=== PATIENT | male | born 1990 | race Caucasian/White ===

== ENCOUNTER 2020-10-21 11:05 | Emergency (ER) | payer SELFPAY ==
[~2020-10-21] VITALS: Ht 180.3 cm; Wt 93.0 kg
[2020-10-21 11:10] VITALS: BP 137/75
--- NOTE | 2020-10-21 11:43 | NUR ---
DR. DUNBAR BEDSIDE EVALUATING PT
--- NOTE | 2020-10-21 11:46 | NUR ---
30 Y MALE C/O RUQ ABD PAIN X TODAY. PT STATES NON-RADIATING PAIN THAT STARTED THIS AM IN RUQ. PT DENIES ANY N/V/D. LAST BM WAS TODAY AND WAS NORMAL. UPON ASSESSMENT BOWEL SOUNDS ACTIVE IN ALL 4 QUADRANTS, AND PT HAS SOME TENDERNESS UPON PALPATION IN RUQ. DENIES DYSURIA. DENIES SOB/CHEST PAIN PMH: DENIES NKA
[2020-10-21] MEDS ORDERED: KETOROLAC 30 MG/ML VIAL IM ONE (11:50)
--- NOTE | 2020-10-21 11:51 | NUR ---
INSTRUMENT LENS INSPECTOR TOOK UA FROM PT BEDSIDE
[2020-10-21 12:07] LABS: BASOPHILS # (AUTO) 0.1 K/uL (0.00-0.22); BASOPHILS % (AUTO) 0.4 % (0.0-2.0); EOSINOPHILS # (AUTO) 0.1 K/uL (0-0.4); EOSINOPHILS % (AUTO) 0.9 % (0.0-4.0); HEMATOCRIT 39.7 % (36-52); HEMOGLOBIN 13.5 g/dL (12.0-18.0); LYMPHOCYTES # (AUTO) 1.9 K/uL (2.0-11.5); LYMPHOCYTES % (AUTO) 13.9 % (20.5-51.1); MEAN CORPUSCULAR HEMOGLOBIN 29 pg (27-31); MEAN CORPUSCULAR HGB CONC 34 g/dL (33-37); MEAN CORPUSCULAR VOLUME 84.3 fL (80-94); MONOCYTES # (AUTO) 0.7 K/uL (0.8-1.0); MONOCYTES % (AUTO) 5.3 % (1.7-9.3); NEUTROPHILS # (AUTO) 11.1 K/uL (1.8-7.7); NEUTROPHILS % (AUTO) 79.5 % (42.2-75.2); PLATELET COUNT (AUTO) 209 K/uL (140-450); RED BLOOD CELL COUNT(AUTO) 4.71 MIL/uL (4.20-6.10); RED CELL DISTRIBUTION WIDTH 13.2 % (11.6-13.7); WHITE BLOOD COUNT (AUTO) 13.9 K/uL (4.8-10.8)
[2020-10-21 12:10] LABS: APPEARANCE,URINE CLEAR (CLEAR); BILIRUBIN,URINE NEGATIVE (NEGATIVE); BLOOD, URINE 3+ (NEGATIVE); COLOR,URINE YELLOW (YELLOW); LEUKOCYTE ESTERASE ,URINE NEGATIVE (NEGATIVE); NITRITE, URINE NEGATIVE (NEGATIVE); UGLUCOSE NEGATIVE (NEGATIVE)
--- NOTE | 2020-10-21 12:14 | NUR ---
PT RETURNED TO BED [address] VIA AMBULATING
[2020-10-21 12:16] LABS: RBC,URINE 11-20 (MOD) /HPF (0-5); WBC,URINE 0-5 /HPF (0-5)
[2020-10-21 12:21] LABS: ALBUMIN 3.5 g/dL (3.4-5.0); ANION GAP 8.1 (8-16); CARBON DIOXIDE 28.8 mmol/L (21-32); CREATININE 1.1 mg/dL (0.6-1.3); POTASSIUM 3.9 mmol/L (3.5-5.1); TOTAL BILIRUBIN 0.2 mg/dL (0.0-1.0)
[2020-10-21] MEDS ORDERED: NAPR-54 PO (12:44)
[2020-10-21] MEDS ORDERED: ACET-8386 PO (12:44)
[2020-10-21] MEDS ORDERED: TAMS0.4C96 PO (12:44)
[2020-10-21] MEDS ORDERED: HYDROcodone/APAP 5/325 MG 1 TAB TAB PO ONE (12:45)
[2020-10-21 13:05] VITALS: BP 117/79
--- NOTE | 2020-10-21 13:05 | NUR ---
Patient discharged with v/s stable. Written and verbal after care instructions ABOUT KIDNEY STONES given and explained. Patient alert, oriented and verbalized understanding of instructions. Ambulatory with steady gait. All questions addressed prior to discharge. ID band removed. Patient advised to follow up with PMD. Rx of NAPROXEN, HYDROCODONE/ACETAMINOPHEN, TAMSULOSIN given. Patient educated on indication of medication including possible reaction and side effects. Opportunity to ask questions provided and answered.
== END 2020-10-21 13:04 | disposition home or self-care (01) ==
LOC: MED 11:05
DX: N20.1 Calculus of ureter (principal); Z79.899 Other long term (current) drug therapy
CPT/HCPCS: 36415; 74176; 80053; 81001; 83690; 85025; 96372; 99284; J1885